=== PATIENT | male | born 1945 | race Asian ===

== ENCOUNTER 2016-03-20 13:30 | Day surgery (SDC) | payer MEDICARE, MEDICAID ==
[~2016-03-20] VITALS: Ht 170.2 cm; Wt 83.5 kg
[~2016-03-20 13:30] MED LIST: ALIR150P SQ; AMLO10TA3 PO; CARV12.52 PO; CHOL10008 PO; CLOP75TA28 PO; DOCU-41 PO; FUR20 PO; GABA-500 PO; HSC.125T PO; INSU100I; KEN25CR EXT; LISI40TA PO; LVCR25100 PO; Lactated Ringer's 1,000 ML IV ONE; MAGN250T PO; OMEG-38 PO; OMEP20CA11 PO; POTA10CA42 PO; ROPI0.5T2 PO; SITA100T12 PO; THIO300C PO; TRAM50TA2 PO
[2016-03-20] MEDS ORDERED: Propofol 10,000 mCg/mL 20 mL Inj ONE (13:31)
[2016-03-20 14:07] VITALS: BP 151/92; PULSE 71; RESP 14; O2SAT 95
[2016-03-20] MEDS ORDERED: Ondansetron 2 mg/mL 2 mL Inj IVPUSH PRN (14:10)
[2016-03-20] MEDS ORDERED: Lactated Ringer's 1,000 ML IV SCH (14:10)
--- NOTE | 2016-03-20 14:13 | PCM.HPANE ---
Patient Data Surgeon Admitting Provider: Attending Provider:David Milton MD Primary Care Physician:Tanna Mayer MD Other Provider:Makenna Clarkingham Anesthesia Reason for Visit Colon Polyp, Anemia Ht/WT & BMI Height (Feet): 5 Height (Inches): 7 Weight (Kilograms): 83.46 Body Mass Index 28.00 Allergies Coded Allergies: niacin (Verified Allergy, Unknown, 03/19/16) simvastatin (Verified Allergy, Unknown, 03/19/16) Past Anesthesia History Anesthesia History: Denies:: Abnormal Airway, Anesthesia Reactions, Difficult Intubation, Fam Anesthesia Reaction, Fam Malignant Hypertherm, Malignant Hyperthermia Diabetes History Hx Diabetes?: Yes Current Bedside Blood Glucose: 90 MRSA MRSA: No Medications Blood Thinner: Plavix Last Dose Blood Thinner: Mar 15, 2016 Reported Medications Cholecalciferol (Vitamin D3) (Vitamin D3)1,000 Unit Tab.chew1,000 Unit PO 03/19/16 Triamcinolone Acet (Triamcinolone Acetonide Cream)1 Applic/0.25 Gm Cr1 Applic EXT BID #60 GM Ref 0 03/19/16 Tramadol 50 Mg Apehle34 Mg PO Q4H PRN For Pain Ref 0 03/19/16 Carbidopa/Levodopa 25-100 mg (Sinemet 25-100 mg)1 Each Tablet1 Tablet PO DAILY 03/19/16 Ropinirole 0.5 Mg Tablet0.5 Mg PO TID Ref 0 03/19/16 Alirocumab (Praluent Pen)150 Mg/Ml Pen. Mg SQ 03/19/16 Potassium Chloride 10 Meq Capsule.er10 Meq PO DAILY 30 Days Ref 0 TAKE WITH FOOD 03/19/16 Omeprazole 20 Mg Capsule.dr20 Mg PO DAILY Ref 0 03/19/16 Insulin Aspart (NovoLOG U-100 Pen)100 Unit/Ml Insuln.pen 03/19/16 Magnesium 250 Mg Dqncad629 Mg PO 03/19/16 Lisinopril 40 Mg Yusawf17 Mg PO DAILY 30 Days Ref 0 03/19/16 Sitagliptin Phos (Januvia)100 Mg Jooiqx401 Mg PO DAILY Ref 0 03/19/16 Gabapentin 100 Mg Egwiuky399 Mg PO DAILY 30 Days Ref 0 03/19/16 Furosemide 20 Mg Tab20 Mg PO DAILY 30 Days Ref 0 03/19/16 [place]-3/Dha/Epa/Fish Oil (Fish Oil 1,000 mg Softgel)1 Each Capsule1 Each PO 03/19/16 Docusate Sodium (Colace)100 Mg Iyinlxt644 Mg PO DAILY PRN For Constipation Ref 0 03/19/16 Clopidogrel 75 Mg Qjnlgz76 Mg PO DAILY Ref 0 03/19/16 Carvedilol 12.5 Mg Yfonlw94.5 Mg PO BID Ref 0 03/19/16 Amlodipine 10 Mg Vjfqyd43 Mg PO DAILY Ref 0 03/19/16 Alpha Lipoic Acid 300 Mg Wfnpgek425 Mg PO 03/19/16 Discontinued Reported Medications Hyoscyamine Sulfate (Levsin)0.125 Mg Tab0.125 Mg PO 03/19/16 History HEENT History: Positive for:: Dysphagia (due to Parkinsons Dx) Hearing Problem (no hearing aides) Denies:: Abnormal Airway Difficult Intubation Denture Type: Full- Upper Full- Lower Hx of Heart Problems?: Yes Cardiovascular History: Positive for:: Hypertension Hx of Respiratory Problem?: Yes Respiratory History: Positive for:: Pneumonia (last December) Neurological History: Positive for:: CVA (TIA, 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) Hx of GI Problems?: Yes Gastrointestinal History: Positive for:: Gastroesphageal Reflux Other GI Pertinent History: chronic kidney dx Psycho Social History: Positive for:: Anxiety Hx Depression Hx Surgeries?: Yes (4 way bipass,prostate removed,cyst on back,) Hx Any Other Health Problems?: Yes Hx Diabetes: YesBedside Blood Glucose: 90 Other Pertinent History: Parkinson Dx Hx Alcohol Use: No Stop/Bang Treated for Sleep Apnea?: No Do You Have a CPAP Machine?: No S-Snoring: Do You Snore Loudly: Yes T-Tired: feel tired, fatigued: No O-Obsered: Observed not breath: No P-Blood Pressure: treated: Yes B- Body Mass Index > 35 kg/m2: No A- Age over 50: Yes N- Neck Large Circumference: No G- Gender Male: Yes JUVE Total Score: 4 JUVE Risk Assessment: Low Risk, <3 Yes Risk Assessment Category Category 1A: Patient has history of documented sleep apnea, and HAS NOT received any narcotic, sedative or anesthesia administration during this stay. Category 1B: Patient has history of documented sleep apnea, and HAS received any narcotic , sedative or anesthesia administration during this stay Category 2: Patient has SUSPECTED Obstructive Sleep Apnea, and HAS received any narcotic , sedative or anesthesia administration during this stay. Category 3: Patient has SUSPECTED Obstructive Sleep Apnea and HAS NOT received narcotic, sedative or anesthesia administration during this stay. Category 4: Outpatient in Procedural Areas with known sleep apnea or who screen positive for High Risk via the STOP/BANG questionnaire. Exam Exam Vital Signs Vital Signs Date Time Temp Pulse Resp B/P Pulse Ox O2 Delivery O2 Flow Rate FiO2 03/20/16 14:07 37.3 71 14 151/92 95 Room Air General Appearance: Oriented X3 HEENT/AIRWAY: MP 2 Lungs: Normal Air Movement Heart: Regular Rate/Rhythm Meds/Labs/Diagnostics Bedside Blood Glucose: 90 Plan Impression Patient chart reviewed, patient interviewed and anesthestic plan with risks, benefits, and alternatives discussed, and informed consent obtained. ASA Physical Status: ASA3 Severe Disease Anesthetic Plan: MAC Bene/Risks/Altern/Consents: Yes HP Complete Prior to Induction: Yes Osmel Padron MD Mar 20, 2016 14:13
[2016-03-20 14:54] VITALS: BP 81/54; PULSE 67; RESP 14; O2SAT 94
--- NOTE | 2016-03-20 14:57 | PCM.ANEP1 ---
Post Anesthesia Phase 1 PACU Phase 1 Assessment Vital Signs Vital Signs Date Time Temp Pulse Resp B/P Pulse Ox O2 Delivery O2 Flow Rate FiO2 03/20/16 14:07 37.3 71 14 151/92 95 Room Air Anesthetic Administered: MAC Level of Alertness: Awake, talking Pain: No Nausea or Vomiting: No Oxygen Delivery: Room Air Lungs: Normal Air Movement Osmel Padron MD Mar 20, 2016 14:57
--- NOTE | 2016-03-20 14:57 | PCM.ANEP2 ---
Post Anesthesia Evaluation ASA/CMS Post Anesthesia VS in Patient's Normal Range?: Yes Resp Stable; Airway Patent?: Yes CV Function & Hydration Stable: Yes Mental Status Recovered?: Yes Pain control Satisfactory?: Yes N/V Control Satisfactory?: Yes Osmel Padron MD Mar 20, 2016 14:57
[2016-03-20 15:04] VITALS: BP 86/51; PULSE 65; RESP 14; O2SAT 93
[2016-03-20 15:13] VITALS: BP 92/54; PULSE 65; O2SAT 94
--- NOTE | 2016-03-20 15:18 | ENDO ---
[address] [address] ENDOSCOPY PROCEDURE PATIENT: VIPUL HDEZ : 1945 MR#: [id number] ADMIT: 03/20/2016 JOB ID: [id number] DATE: 03/20/2016 TYPE OF OPERATION: 1. Esophagogastroduodenoscopy with biopsy. 2. Colonoscopy with hot snare polypectomy and biopsy. PREOPERATIVE DIAGNOSIS(ES): 1. Anemia. 2. History of colon polyps. POSTOPERATIVE DIAGNOSIS(ES): 1. Normal upper endoscopy, status post biopsy. 2. An 8 mm flat based polyps seen in the ascending colon, status post sclerotherapy injection with normal saline with a saline lift status post hot snare polypectomy. 3. Two polyps 2 mm in size in ascending colon removed by cold biopsy forceps. ANESTHESIA: Monitored anesthesia care. COMPLICATIONS: None. BLOOD LOSS: Minimal. DESCRIPTION OF PROCEDURE: After risks and benefits were explained to the patient, informed consent was obtained. After anesthesia administered, an upper endoscope was then inserted into the mouth, intubated into the esophagus, stomach, second portion of duodenum. Mucosa carefully examined. After procedure was done, the scope withdrawn and procedure terminated. FINDINGS: Upon inspection of the esophagus, the esophagus was normal without masses, ulcers, lesions. Z-line located 40 cm from incisors. Upon entering the stomach, the stomach was also normal without masses, ulcers, or lesions. Duodenal bulb, first and second portion normal. Biopsy taken at the duodenum. Upon inspection of the anus, no masses, hemorrhoids, ulcers, or fissures that were seen. Throughout the entire examination, there was a flat-based 8 mm polyp seen in the ascending colon, status post sclerotherapy injection with saline pillow lift status post hot snare polypectomy. There was also two ascending colon polyps 2 mm in diameter removed by cold biopsy forceps. There was also an ascending colon polyp and sigmoid colon diverticulosis. Retroflexion normal. IMPRESSIONS: 1. Ascending colon sigmoid colon diverticulosis. 2. A 8 mm ascending colon polyp, status post normal saline pillow lift with hot snare polypectomy. 3. Two ascending colon polyps, 2 mm, status post biopsy removal forceps. 4. Normal upper endoscopy. RECOMMENDATIONS: 1. Await pathology results. 2. If three or more tubular adenoma polyps, the next colonoscopy in three years. Otherwise next colonoscopy in five years.
[2016-03-20 15:22] VITALS: BP 101/58; PULSE 64; RESP 17; O2SAT 94
[2016-03-20 15:32] VITALS: BP 95/58; PULSE 64; RESP 15; O2SAT 94
--- NOTE | 2016-03-24 12:02 | PATH ---
SURGICAL PATHOLOGY Attending Physician:David Milton MD CASE STATUS: Signed Out PATIENT NAME: VIPUL HDEZ PID: [id number] : 1945 DATE COLLECTED:03/20/2016 00:00 SPECIMEN: 1: Duodenum, Biopsy 2: Colon, Biopsy 3: Colon, Biopsy CLINICAL HISTORY: 1: DUODENUM BIOPSY 2: ASCENDING COLON POLYPS X2 3: ASCENDING COLON POLYP X1 FINAL DIAGNOSIS: 1. Duodenum Biopsy: Changes of chronic duodenitis with focal areas of foveolar metaplasia and focal mucosal erosion. Negative for evidence of celiac disease. Negative for dysplasia and malignancy. 2. Ascending Colon Polyps: Tubular adenoma involving two biopsy fragments. 3. Ascending Colon Polyp: Tubular adenoma involving two biopsy fragments. ICD10: D12.2 GROSS DESCRIPTION: The specimen is received in three formalin filled containers labeled with the patient's name. 1. The specimen is sublabeled "duodenum" and consists of 2 portions of tissue which aggregate to 0.5 x 0.2 x 0.2 CM. The specimen is entirely submitted in cassette 1A. 2. The specimen is sublabeled "ascending colon polyps #1" and consists of 2 portions of tissue which aggregate to 0.4 x 0.3 x 0.2 CM. The specimen is entirely submitted in cassette 2A. 3. The specimen is sublabeled "ascending colon polyp #2" and consists of 3 portions of tissue which aggregate to 0.6 0.6 x 0.5 CM. The specimen is entirely submitted in cassette 3A. 03/23/2016 [facility] ICD-9 CODES: CPT CODES: 1: 10881 2: 88678 3: 92934 Electronically Signed Out Kal Root MD [facility] Pathology [facility] [address], [place] [address] Technical component performed at [facility], [facility] [address], [place], [address]
== END 2016-03-20 23:59 | disposition home or self-care (01) ==
LOC: END 13:30
PROVIDERS: ATTEND Internal Medicine Gastroenterology
DX: Z12.11 Encounter for screening for malignant neoplasm of colon (principal); D12.2 Benign neoplasm of ascending colon; K57.30 Diverticulosis of large intestine without perforation or abscess without bleeding; Z86.010 Personal history of colon polyps; D64.9 Anemia, unspecified; I10 Essential (primary) hypertension; G47.30 Sleep apnea, unspecified; G20 Parkinson's disease; E55.9 Vitamin D deficiency, unspecified; E11.42 Type 2 diabetes mellitus with diabetic polyneuropathy; Z79.4 Long term (current) use of insulin; I25.10 Atherosclerotic heart disease of native coronary artery without angina pectoris; M10.9 Gout, unspecified; E78.5 Hyperlipidemia, unspecified; Z95.1 Presence of aortocoronary bypass graft; Z79.02 Long term (current) use of antithrombotics/antiplatelets
CPT/HCPCS: 43239; 45380; 45385; J7120